=== PATIENT | female | born 1995 | race Caucasian/White ===

== ENCOUNTER 2019-12-27 12:47 | Emergency (ER) | payer BC ==
--- NOTE | 2019-12-27 15:06 | ER Document Report ---
ED General - General Chief Complaint: Vaginal Pain Stated Complaint: VAGINAL PAIN Time Seen by Provider: 12/27/19 14:07 - HPI Notes: Chief complaint: Perineal pain and bleeding History of present illness: 24-year-old female nulligravida with normal last menstrual period about 2-1/2 weeks ago presents with 2 to 3-day history of soreness and swelling in left side perineal area inside vagina which developed after she had had painful intercourse. Pain was worse this afternoon when she was driving her car and when she came to the emergency department she went to the restroom and noted a small amount of blood on tissue when she wiped herself. She denies any prior episodes of this in the past. She is basically healthy with no known allergies no current medications. She denies fever, chills, nausea vomiting. She denies dysuria. Past Medical History - General Information source: Patient - Social History Smoking Status: Never Smoker Frequency of alcohol use: Occasional Drug Abuse: None Family History: Reviewed & Not Pertinent Review of Systems - Review of Systems Notes: Constitutional: Negative for fever. HENT: Negative for sore throat. Eyes: Negative for visual changes. Cardiovascular: Negative for chest pain. Respiratory: Negative for shortness of breath. Gastrointestinal: Negative for abdominal pain, vomiting or diarrhea. Genitourinary: As per HPI. Musculoskeletal: Negative for back pain. Skin: Negative for rash. Neurological: Negative for headaches, weakness or numbness. 10 point ROS negative except as marked above and in HPI. Physical Exam - Vital signs Vitals: Temp Pulse Resp BP Pulse Ox 98.7 F 94 18 117/70 98 12/27/19 12:52 12/27/19 12:52 12/27/19 12:52 12/27/19 12:52 12/27/19 12:52 - Notes Notes: GENERAL: Well-developed well-nourished female approximate stated age appearing moderately uncomfortable. SKIN: Good turgor. Mild facial acne. HEAD: Normocephalic atraumatic. EYES: PERRLA. EOMI. Conjunctivae and sclerae clear. EARS: CANALS AND TMS CLEAR. NOSE: CLEAR. MOUTH: Moist mucosa. Good dentition. No stridor or edema. No drooling. NECK: Supple. No masses or thyromegaly. No adenopathy. Carotids 2+ without bruits. No JVD. BACK: Symmetrical without tenderness. CHEST: Respirations unlabored. Breath sounds clear and symmetrical. HEART: Regular rhythm. No murmur gallop or rub. ABDOMEN: Soft nontender without masses, organomegaly or rebound. Bowel sounds normally active. No bruits. PELVIC: Normal external genitalia and hair distribution. Patient has some superficial abrasions inner aspect of right thigh. On speculum exam she has abrasions of the left vaginal wall with a small amount of superficial bleeding. I do not appreciate a discrete laceration with the speculum or bimanual exam although she is very tender along the left vaginal wall. Cervix is nulliparous without lesions. Bimanual exam shows no cervical motion tenderness, uterine enlargement or adnexal masses or tenderness. EXTREMITIES: No edema. No calf tenderness. Cap refill less than 1.5 seconds. Dorsalis pedis and posterior tibial pulses 3+ and symmetrical. NEUROLOGICAL: GCS 15. Alert and oriented x3. Normal gait. Fluent speech. Cranial nerves II through XII intact. Sensorimotor and cerebellar normal. Normal tone. PSYCHIATRIC: Appropriate affect. Course - Re-evaluation Re-evalutation: 12/27/19 16:21 Clinically the patient appears to have a vaginal wall abrasion. test is negative. She was given IM Toradol with improvement in her discomfort. She appears stable for outpatient management. 12/27/19 16:22 Findings, clinical impression and plan of treatment have been discussed with patient/family. Understanding of current findings and recommendations has been acknowledged by them and there is agreement regarding disposition and follow-up. - Vital Signs Vital signs: Temp Pulse Resp BP Pulse Ox 98.7 F 94 18 117/70 98 12/27/19 12:52 12/27/19 12:52 12/27/19 12:52 12/27/19 12:52 12/27/19 12:52 - Laboratory Laboratory results interpreted by me: 12/27/19 14:11 Urine Protein 100 H Urine Ketones TRACE H Urine Blood LARGE H Urine Bilirubin SMALL H Leukocyte Esterase Rfl MODERATE H Urine Ascorbic Acid 40 H Discharge - Discharge Clinical Impression: Vaginal wall abrasion Condition: Stable Disposition: HOME, SELF-CARE Additional Instructions: Soak in warm tub 15 minutes 3 times a day. Avoid intercourse or use of tampons until reevaluated by your physician. Take prescribed medications as instructed. Prescriptions: Tramadol HCl [Ultram 50 mg Tablet] 50 mg PO Q4HP PRN #12 tab PRN Reason: Cephalexin Monohydrate [Keflex 500 mg Capsule] 500 mg PO Q6H 10 Days #40 capsule Referrals: [facility] [Provider Group] - Follow up as needed
[2019-12-27 15:30] LABS: APPEARANCE,URINE CLOUDY; BILIRUBIN,URINE SMALL (NEGATIVE); CALCIUM OXALATE CRYSTALS,URINE RARE /HPF; COLOR,URINE AMBER; GLUCOSE, URINE NEGATIVE (NEGATIVE); KETONES,URINE TRACE mg/dL (NEGATIVE); PROTEIN,URINE 100 mg/dL (NEGATIVE); UROBILINOGEN,URINE NEGATIVE mg/dL (<2.0)
[2019-12-27 15:38] LABS: BACTERIA (WET MOUNT) 3+ BACTERIA SEEN; EPITHELIALS (WET MOUNT) 3+ EPITHELIALS SEEN; RBCS (WET MOUNT) 1+ RBCS SEEN; T.VAGINALIS (WET MOUNT) NO TRICHOMONAS SEEN; WBCS (WET MOUNT) 3+ WBCS SEEN; YEAST (WET MOUNT) NO YEAST SEEN
[2019-12-27] MEDS ORDERED: KETOROLAC TROMETHAMINE 60 MG/2 ML SDV IM ONE (16:04)
[2019-12-27 17:02] LABS: CHLAM PCR NOT DETECTED (NOT DETECT)
[2019-12-27 17:30] VITALS: BP 108/63
== END 2019-12-27 17:32 | disposition home or self-care (01) ==
LOC: ER 12:47
DX: S30.814A Abrasion of vagina and vulva, initial encounter (principal); S70.311A Abrasion, right thigh, initial encounter; X58.XXXA Exposure to other specified factors, initial encounter; L70.9 Acne, unspecified
CPT/HCPCS: 99282; 96372; 87210; 81025; 81001; 87491; 87591; J1885

== ENCOUNTER 2020-05-24 12:51 | Emergency (ER) | payer BC ==
[2020-05-24 13:37] VITALS: BP 120/71
[2020-05-24] MEDS ORDERED: DEXAMETHASONE 4 MG TABLET PO ONE (13:57)
--- NOTE | 2020-05-24 14:01 | ER Document Report ---
HPI - HPI Time Seen by Provider: 05/24/20 13:57 Notes: CHIEF COMPLAINT: Pruritic rash on legs and arms for 3 days HPI: 24-year-old female presenting with a pruritic rash on the legs and arms for 3 days with intense itching. Patient was outside recently just prior to onset thought she might have been bitten by ants but did not see any ants. No fevers. Has been using Benadryl cream at home without resolution of the itching. No shortness of breath no fever ROS: See HPI - all other systems were reviewed and are otherwise negative Constitutional: no fever ENT: no runny nose, no sore throat Resp: no SOB Integumentary: + rash Allergy: no hives Musculoskeletal: no extremity pain or swelling Neurological: no numbness/tingling, no weakness MEDICATIONS: I agree with the patient medications as charted by the RN. ALLERGIES: I agree with the allergies as charted by the RN. PAST MEDICAL HISTORY/PAST SURGICAL HISTORY: Reviewed and agree as charted by RN. SOCIAL HISTORY: Reviewed and agree as charted by RN. FAMILY HISTORY: No significant familial comorbid conditions directly related to patient complaint EXAM: Reviewed vital signs as charted by RN. CONSTITUTIONAL: Alert and oriented and responds appropriately to questions. Well-appearing; well-nourished HEAD: Normocephalic; atraumatic EYES: Conjunctivae clear, sclerae non-icteric ENT: normal nose; no rhinorrhea; moist mucous membranes NECK: Supple without meningismus; non-tender; no cervical lymphadenopathy, no masses CARD: RRR; no murmurs, no clicks, no rubs, no gallops; symmetric distal pulses RESP: Normal chest excursion without splinting or tachypnea; breath sounds clear and equal bilaterally; no wheezes, no rhonchi, no rales, pulse oximetry 98% on room air not hypoxic ABD/GI:non-distended; soft, non-tender BACK: The back appears normal EXT: Normal ROM in all joints; no cyanosis, no effusions, no edema SKIN: Normal color for age and race; warm; dry; good turgor; there are raised erythematous lesions on the bilateral anterior lower legs, bilateral forearms. The papules are surrounded by a whitish ring. No petechia no purpura NEURO: Moves all extremities equally; Motor and sensory function intact PSYCH: The patient's mood and manner are appropriate. Grooming and personal hygiene are appropriate. MDM: 24-year-old female with likely chigger bite. She did not see any ants. These have the appearance of an allergic type bite not a cellulitic change or bedbugs. We will give a dose of Decadron in the ER, I will place patient on Atarax or Vistaril for itching, oatmeal baths follow-up PCP Past Medical History - Social History Smoking Status: Smoker,Current Status Unk Family History: Reviewed & Not Pertinent Course - Vital Signs Vital signs: Temp Pulse Resp BP Pulse Ox 98.2 F 76 16 120/71 98 05/24/20 13:36 05/24/20 13:36 05/24/20 13:36 05/24/20 13:36 05/24/20 13:36 Discharge - Discharge Clinical Impression: Chigger bites Condition: Stable Disposition: HOME, SELF-CARE Additional Instructions: Warm oatmeal baths to help with itching. Take the Vistaril to help with itching. Follow-up primary care provider for reevaluation of symptoms call for appointment Prescriptions: Hydroxyzine Pamoate [Vistaril 25 mg Capsule] 25 mg PO Q6HP PRN #30 capsule PRN Reason:
== END 2020-05-24 14:06 | disposition home or self-care (01) ==
LOC: ER 12:51
DX: B88.0 Other acariasis (principal); Z79.899 Other long term (current) drug therapy
CPT/HCPCS: 99283; J8540